=== PATIENT | female | born 1970 | race African-American/Black ===

== ENCOUNTER 2017-01-29 21:17 | Emergency (ER) | payer OTHER, MEDICAID ==
[2017-01-29 21:26] VITALS: BP 142/94; BMI 38.7
[2017-01-29] MEDS ORDERED: NS 1000 ML 1,000 ML IV ONE (21:42)
[2017-01-29] MEDS ORDERED: PHENERGAN INJ 25 MG IV ONE (21:42)
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
[2017-01-29] MEDS ORDERED: NS 1000 ML 1,000 ML ONE (21:49)
[2017-01-29] MEDS ORDERED: PHENERGAN INJ 25 MG ONE (21:50)
[2017-01-29] MEDS ORDERED: NS 25 ML IV 25 ML IV ONE (21:51)
[2017-01-29 22:22] LABS: BILIRUBIN,URINE NEGATIVE (NEGATIVE); BLOOD/HEMOGLOBIN,URINE 5+ (NEGATIVE); GLUCOSE, URINE NEGATIVE (NEGATIVE); KETONES,URINE NEGATIVE (NEGATIVE); LEUKOCYTE ESTERASE ,URINE 1+ (NEGATIVE); NITRITES,URINE NEGATIVE (NEGATIVE); PH,URINE 6.5 (5.0 - 8.0); PROTEIN,URINE 2+ (NEGATIVE); UROBILINOGEN,URINE NORMAL (NORMAL)
[2017-01-29 22:29] LABS: APPEARANCE,URINE SLIGHTLY HAZY (CLEAR); COLOR,URINE YELLOW (YELLOW)
[2017-01-29 22:30] LABS: BACTERIA,URINE TRACE /HPF (NEGATIVE); SQUAMOUS EPITHELIAL CELL,UR FEW /HPF (NEGATIVE)
[2017-01-29 22:34] LABS: ALANINE AMINOTRANSFERASE 18 Units/L (12-78); ALBUMIN 3.2 g/dL (3.4-5.0); ALKALINE PHOSPHATASE 59 Units/L (46-116); ASPARTATE AMINO TRANSFERASE 22 Units/L (15-37); BLOOD UREA NITROGEN 11 mg/dL (7-18); CALCIUM 8.8 mg/dL (8.5-10.1); CARBON DIOXIDE 20.3 mmol/L (21-32); CHLORIDE 107 mmol/L (98-107); COR CA(FOR HYPOALB) 9.4 mg/dL (8.5-10.1); CREATININE 0.65 mg/dL (0.55-1.02); SODIUM 137 mmol/L (136-145); TOTAL PROTEIN 7.5 g/dL (6.4-8.2); eGFR BLACK RACES > 60 (>60); eGFR NON BLACK RACES > 60 (>60)
[2017-01-29 22:44] LABS: BASOPHILS # (AUTO) 0.1 X10^3/uL (0.0-0.1); BASOPHILS % (AUTO) 0.6 % (0.2-1.0); EOSINOPHILS # (AUTO) 0.1 x10^3/uL (0.0-0.2); EOSINOPHILS % (AUTO) 1.1 % (0.9-2.9); LYMPHOCYTES # (AUTO) 1.7 X10^3/uL (1.3-2.9); LYMPHOCYTES % (AUTO) 14.3 % (21.0-51.0); MEAN CORPUSCULAR HEMOGLOBIN 26.8 pg (27.0-34.0); MEAN CORPUSCULAR HGB CONC 33.4 g/dL (33.0-35.0); MEAN CORPUSCULAR VOLUME 80.3 fL (80.0-100.0); MEAN PLATELET VOLUME 8.1 fL (7.4-11.0); MONOCYTES # (AUTO) 0.8 x10^3/uL (0.3-0.8); PLATELET COUNT 264 X10^3/uL (150.0-450.0); RED BLOOD COUNT 4.11 X10^6/uL (3.5-5.4); RED CELL DISTRIBUTION WIDTH 16.2 % (11.6-16.5); WHITE BLOOD COUNT 11.7 X10^3/uL (3.6-10.0)
--- NOTE | 2017-01-29 23:16 | RAD ---
Acute abdomen series three views Indication: Abdominal pain. Findings: There is no pneumothorax or effusion. Chest radiograph is normal. Bowel-gas pattern is norm al. Gas stool seen in the colon. There is cholecystectomy clips. No free air or pneumatosis seen. No markedly dilated loop of small bowel identified. Impression: No high-grade obstruction, free air or pneumatosis. Reported By:
[2017-01-30] MEDS ORDERED: BICILLIN L-A IM ONE ×2 (00:07→00:10)
== END 2017-01-30 00:30 | disposition home or self-care (01) ==
LOC: ER 21:17
DX: J02.0 Streptococcal pharyngitis (principal)
CPT/HCPCS: 36415; 74022; 80053; 81001; 85025; 86140; 87880; 96365; 96372; 96374; 99283; J0560; J2550

== ENCOUNTER 2017-03-30 11:30 | Emergency (ER) | payer OTHER, MEDICAID ==
[2017-03-30 11:43] VITALS: BP 144/93; BMI 38.7
--- NOTE | 2017-03-30 12:26 | DR.GENAD ---
HPI - PCP Primary Care Physician: NATHAN COLLINS - Complaint/Symptoms Chief Complaint:: "trouble breathing, been sick for two weeks" - Nurses notes reviewed Nurses Notes Review: Yes - Source History Provided: Patient - Mode of Arrival Mode of Arrival: Ambulatory - Timing Onset of Chief Complaint: 03/16/17 Came on: Suddenly - Duration Duration: Constant Duration: Days - Severity Severity: Moderate PMH - PMH Past Medical History: Yes Past Medical History: Asthma, Hypertension Past Surgical History: Yes Surgical History: Appendectomy, Cholecystectomy, Tonsillectomy Past Surgical History Comment: RIGHT KNEE, THROAT - Family History History of Family Medical Conditions: Yes Family Medical History: Diabetes Mellitus - Social History Does patient currently use any type of tobacco product: No Have you used tobacco products in the last 12 months: No Type of Tobacco Use: None Does any household member use tobacco: No Alcohol Use: None Do you use any recreational Drugs:: No Lives With: Alone, Family Lives Where: Home - infectious screening In the last 2 months have you had wt loss of >10#?: NO Have you had fever, night sweats or hemotysis?: No Have you traveled outside the country in the last 6 months?: No Isolation: Airborn/Negative Pressure PE - Vital Signs Vitals: Temperature 97 F Pulse Rate 75 Respiratory Rate 18 Blood Pressure 144/93 O2 Sat by Pulse Oximetry 99 - Diagnosis Discharge Problem: Bronchitis Asthma Qualifiers: Asthma severity: moderate Asthma persistence: persistent Asthma complication type: uncomplicated Qualified Code(s): J45.40 - Moderate persistent asthma, uncomplicated - Discharge Plan Condition: Stable Prescriptions: Acetaminophen with Codeine [Tylenol/Codeine #3 300-30 mg] 1 tab PO Q4-6H PRN # 15 tab PRN Reason: Pain Amoxicillin [Amoxil 875 mg] 875 mg PO Q12H #20 tab - Follow ups/Referrals Follow ups/Referrals: NFD,None [Primary Care Provider] - 3 days - Instructions Instructions: Acute Bronchitis, [id number], Asthma, Adult, [id number], Intermetacarpal Sprain Additional Instructions: RETURN TO ED IF WORSE.
--- NOTE | 2017-03-30 12:59 | RAD ---
Examination: Chest, PA and lateral views History: Cough and chest pain, diabetes and hypertension Comparison reference: None Findings: Normal heart size with clear lungs and pleural spaces. Impression: Chest within normal limits. Reported By:
--- NOTE | 2017-03-30 13:01 | RAD ---
Examination: Left ankle, three views History: Pain, no trauma, pain to top of foot Comparison reference: None Findings: There is no evidence for acute fracture, dislocation or mortise joint asymmetry. There is n onacute fragmentation involving the lateral process of the talus. Impression: No acute process identified. Suspect old fracture lateral process of talus. Reported By:
--- NOTE | 2017-03-30 13:03 | RAD ---
Examination: Left foot, three views History: Pain top of foot, no trauma Findings: No acute fracture or dislocation identified. Surgical screws in the distal 3rd and 4th meta tarsals. Small calcaneal enthesophyte at the Achilles insertion. Nonacute fragmentation involves the lateral surface of the talus, better visualized on the accompanying ankle examination. Impression: No acute process identified. Postsurgical and posttraumatic findings. Reported By:
== END 2017-03-30 13:50 | disposition home or self-care (01) ==
LOC: ER 11:53
DX: J40 Bronchitis, not specified as acute or chronic (principal); J45.40 Moderate persistent asthma, uncomplicated
CPT/HCPCS: 71046; 73610; 73630; 87502; 99282

== ENCOUNTER 2017-05-04 20:27 | Emergency (ER) | payer OTHER, MEDICAID ==
[2017-05-04 20:34] VITALS: BP 135/80; BMI 37.1
--- NOTE | 2017-05-04 22:27 | DR.GENAD ---
HPI - PCP Primary Care Physician: NATHAN - HPI Comment HPI Comment: HISTORY BELOW. - Complaint/Symptoms Chief Complaint Doctors Comments: BODY ACHES, LOW GRADE FEVER, COUGH COLD AND CONGESTION FOR FEW DAYS. WORSE TODAY. Chief Complaint:: C/C/C, ACHY - Nurses notes reviewed Nurses Notes Review: Yes - Source History Provided: Patient - Mode of Arrival Mode of Arrival: Ambulatory - Timing Onset of Chief Complaint: 04/03/17 Came on: Suddenly - Duration Duration: Constant Duration: Days - Severity Severity: Moderate PMH - PMH Past Medical History: Yes Past Medical History: Asthma, Hypertension Past Surgical History: Yes Surgical History: Appendectomy, Cholecystectomy, Tonsillectomy - Family History History of Family Medical Conditions: Yes Family Medical History: Diabetes Mellitus - Social History Does patient currently use any type of tobacco product: No Have you used tobacco products in the last 12 months: No Type of Tobacco Use: None Does any household member use tobacco: No Alcohol Use: None Do you use any recreational Drugs:: No Lives With: Family Lives Where: Home - infectious screening Have you traveled outside the country in the last 6 months?: No Isolation: Standard ROS - Review of Systems Constitutional: Fever, Weakness, Fatigue. negative: Chills Eyes: negative: Eye Pain, Discharge ENTM: Nose Discharge, Nose Congestion, Throat Pain. negative: Ear Pain Respiratoy: Productive Cough. negative: Short of Breath, Wheezing, Hemoptysis Cardiovascular: No Symptoms Reported Gastrointestinal/Abdominal: No Symptoms Reported Genitourinary: No Symptoms Reported Neurological: Headache, Weakness, Dizziness Musculoskeletal: Muscle Pain Integumentary: No Symptoms Reported Hematologic/Lymphatic: No Symptoms Reported Endocrine: No Symptoms Reported All Other Systems: Reviewed and Negative PE - Vital Signs Vitals: Temperature 98.6 F Pulse Rate 80 Respiratory Rate 20 Blood Pressure 135/80 O2 Sat by Pulse Oximetry 95 - General Limitations: No Limitations General Appearance: Alert - Head Head Exam: Normal Inspection - Eyes Eye exam: Normal Appearance - ENT ENT Exam: Normal External Ear Exam TM/Canal Exam: Bilateral Normal Nose Exam: Normal Nose Exam Mouth Exam: Normal Inspection Throat Exam: Tonsillar Erythema. negative: Tonsillomegaly, Tonsillar Exudate - Neck Neck Exam: Trachea Midline - Chest Chest Inspection: Symmetric Chest Wall Rise - Respiratory Respiratory Exam: Normal Lung Sounds Bilat Respiratory Exam: Bilateral Rhonchi, Lower Rhonchi - Cardiovascular Cardiovascular Exam: Regular Rate, Normal Rhythm, Normal Heart Sounds - Abdominal Exam Abdominal Exam: Normal Bowel Sounds, Soft. negative: Tenderness - Extremities Extremities Exam: Normal Inspection - Back Back Exam: Normal Inspection - Neurologic Neurological Exam: Alert, Oriented X3 - Psychiatric Psychiatric Exam: Normal Affect, Normal Mood - Skin Skin Exam: Normal Color MDM - Differential Diagnosis Differential Diagnosis: PNEUMONIA, BRONCHITIS, FLU, SINUSITIS, PHARYNGITIS Course - Treatment Treatment: SEE ORDERS. - Education/Counseling Education/Counseling: Patient, Education Educated On: Diagnosis, Needs for Follow Up ROR - Labs Reviewed Laboratory Results Reviewed?: Yes Laboratory: 05/04/17 22:40 Throat Throat Culture - Preliminary Influenza Type A (PCR) Negative (NEGATIVE) 05/04/17 22:26 Influenza Type B (PCR) Negative (NEGATIVE) 05/04/17 22:26 S. pyogenes (TEM-PCR) Not detected (NOT DETECT) 05/04/17 22:26 - XRAY XRAY Interpreted by: Radiologist XRAY Findings: REPORT DISCUSS WITH PATIENT. - Diagnosis Discharge Problem: Bronchitis, Sore throat Sinusitis Qualifiers: Sinusitis location: unspecified location Chronicity: acute Recurrence: not specified as recurrent Qualified Code(s): J01.90 - Acute sinusitis, unspecified - Discharge Plan Disposition: HOME, SELF-CARE Condition: Stable Prescriptions: Amoxicillin [Amoxil 875 mg] 875 mg PO Q12H #20 tab Promethazine W/Codeine [PHENERGAN W/CODEINE 6.25mg/10mg (5mL) *] 5 ml PO Q6H PRN #120 ml PRN Reason: Cough - Follow ups/Referrals Follow ups/Referrals: NEREIDA GRANT [Primary Care Provider] - 3 days - Instructions Instructions: Tonsillitis, [id number], Sinusitis, Adult, [id number], Acute Bronchitis, [id number] Additional Instructions: RETURN TO ED IF WOORSE,
--- NOTE | 2017-05-04 22:50 | RAD ---
Chest PA and lateral Indication: Cough and congestion Findings: There is no pneumothorax, effusion or consolidation. Heart size is normal. Impression: No acute chest process. Reported By:
== END 2017-05-04 23:37 | disposition home or self-care (01) ==
LOC: ER 20:42
DX: J40 Bronchitis, not specified as acute or chronic (principal); J02.9 Acute pharyngitis, unspecified; J01.80 Other acute sinusitis
CPT/HCPCS: 71046; 87070; 87502; 87651; 87880; 99282; 99283

== ENCOUNTER 2017-06-11 21:52 | Emergency (ER) | payer OTHER, MEDICAID ==
[2017-06-11 21:58] VITALS: BP 133/87; BMI 38.7
[2017-06-11] MEDS ORDERED: NORFLEX INJ IM ONE (23:43)
[2017-06-11] MEDS ORDERED: TORADOL 60 MG VIAL IM ONE (23:43)
--- NOTE | 2017-06-11 23:44 | DR.GENAD ---
HPI - PCP Primary Care Physician: SANJIV - HPI Comment HPI Comment: NO TRAUMA. - Complaint/Symptoms Chief Complaint Doctors Comments: NECK PAIN, CHRONIC, WORSE TONIGHT. Chief Complaint:: NECK PAIN - Nurses notes reviewed Nurses Notes Review: Yes - Source History Provided: Patient - Mode of Arrival Mode of Arrival: Ambulatory - Timing Onset of Chief Complaint: 05/28/16 Came on: Suddenly - Duration Duration: Constant Duration: Days - Severity Severity: Moderate PMH - PMH Past Medical History: Yes Past Medical History: Asthma, Diabetes, Hypertension Past Surgical History: Yes Surgical History: Appendectomy, Cholecystectomy, Ortho Surgery, Tonsillectomy - Family History History of Family Medical Conditions: Yes Family Medical History: Diabetes Mellitus, Hypertension - Social History Does patient currently use any type of tobacco product: No Have you used tobacco products in the last 12 months: No Type of Tobacco Use: None Does any household member use tobacco: No Alcohol Use: None Do you use any recreational Drugs:: No Lives With: Family Lives Where: Home - infectious screening In the last 2 months have you had wt loss of >10#?: NO Have you had fever, night sweats or hemotysis?: No Have you traveled outside the country in the last 6 months?: No Isolation: Standard ROS - Review of Systems Constitutional: No Symptoms Reported Eyes: No Symptoms Reported ENTM: No Symptoms Reported Respiratoy: No Symptoms Reported Cardiovascular: No Symptoms Reported Gastrointestinal/Abdominal: No Symptoms Reported Genitourinary: No Symptoms Reported Neurological: Numbness (ARMS) Musculoskeletal: Back Pain, Joint Pain, Muscle Pain, Neck Pain Integumentary: No Symptoms Reported Hematologic/Lymphatic: No Symptoms Reported Endocrine: No Symptoms Reported All Other Systems: Reviewed and Negative PE - Vital Signs Vitals: Temperature 98.7 F Pulse Rate 82 Respiratory Rate 16 Blood Pressure 133/87 O2 Sat by Pulse Oximetry 99 - General Limitations: No Limitations General Appearance: Alert - Head Head Exam: Normal Inspection - Eyes Eye exam: Normal Appearance - ENT ENT Exam: Normal External Ear Exam External Ear Exam: Normal External Inspection TM/Canal Exam: Bilateral Normal Nose Exam: Normal Nose Exam Mouth Exam: Normal Inspection Throat Exam: Normal Inspection - Neck Neck Exam: Trachea Midline, Tenderness (PRIGHT LATERAL NENK WITH TENSE MUSCLE.) . negative: Meningismus, Lymphadenopathy - Chest Chest Inspection: Symmetric Chest Wall Rise - Respiratory Respiratory Exam: Normal Lung Sounds Bilat Respiratory Exam: Bilateral Clear to Auscultation - Cardiovascular Cardiovascular Exam: Regular Rate, Normal Rhythm, Normal Heart Sounds - Abdominal Exam Abdominal Exam: Normal Bowel Sounds, Soft. negative: Tenderness - Extremities Extremities Exam: Normal Inspection - Back Back Exam: Paraspinal Tenderness (LOWER SPINE) - Neurologic Neurological Exam: Alert, Oriented X3 - Psychiatric Psychiatric Exam: Normal Affect, Normal Mood - Skin Skin Exam: Normal Color MDM - Additional Information Additional Information Obtained From: Family - Differential Diagnosis Differential Diagnosis: ARTHRTIS, STRAIN, SPRAIN Course - Treatment Treatment: SEE ORDERS. IM TORADOL AND NORFLEX IN ED. - Reevaluation 1st: Improved - Education/Counseling Education/Counseling: Patient, Family, Education Educated On: Diagnosis, Needs for Follow Up - Diagnosis Discharge Problem: Arthritis Strain of neck muscle Qualifiers: Encounter type: initial encounter Qualified Code(s): S16.1XXA - Strain of muscle, fascia and tendon at neck level, initial encounter DJD (degenerative joint disease) Qualifiers: Osteoarthritis location: multiple joints Osteoarthritis type: unspecified Qualified Code(s): M15.9 - Polyosteoarthritis, unspecified - Discharge Plan Disposition: 01 HOME, SELF-CARE Condition: Stable Prescriptions: Cyclobenzaprine HCl [FLEXERIL 10 MG *] 10 mg PO TID PRN #20 tab PRN Reason: Ibuprofen [MOTRIN TAB 800 MG *] 800 mg PO Q8H PRN #30 tab PRN Reason: Pain/Inflammation - Follow ups/Referrals Follow ups/Referrals: NFD,None [Primary Care Provider] - 3 days - Instructions Instructions: Arthritis, [id number]-[id number], Muscle Strain, Ktua-ft-Pcak Additional Instructions: RETURN TO ED IF WORSE.
[2017-06-11] MEDS ORDERED: NORFLEX INJ ONE (23:47)
[2017-06-11] MEDS ORDERED: TORADOL 60 MG VIAL ONE (23:47)
== END 2017-06-12 00:39 | disposition home or self-care (01) ==
LOC: ER 22:11
DX: M19.90 Unspecified osteoarthritis, unspecified site (principal); S16.1XXA Strain of muscle, fascia and tendon at neck level, initial encounter; M15.9 Polyosteoarthritis, unspecified; Y33.XXXA Other specified events, undetermined intent, initial encounter; Y92.9 Unspecified place or not applicable
CPT/HCPCS: 96372; 99282; J1885; J2360

== ENCOUNTER 2017-06-22 22:11 | Emergency (ER) | payer OTHER, MEDICAID ==
[2017-06-22 22:25] VITALS: BP 134/86; BMI 38.7
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
[2017-06-23] MEDS ORDERED: TORADOL TAB PO ONE ×2 (02:07→02:13)
== END 2017-06-23 02:16 | disposition home or self-care (01) ==
LOC: ER 22:46
DX: S13.9XXA Sprain of joints and ligaments of unspecified parts of neck, initial encounter (principal); S83.90XA Sprain of unspecified site of unspecified knee, initial encounter; R51 Headache; Y33.XXXA Other specified events, undetermined intent, initial encounter; M85.88 Other specified disorders of bone density and structure, other site; M17.9 Osteoarthritis of knee, unspecified
CPT/HCPCS: 36600; 70450; 72040; 73564; 99283